=== PATIENT | female | born 1970 | race Caucasian/White ===

== ENCOUNTER 2016-05-27 18:12 | Emergency (ER) | payer BC ==
[~2016-05-27] VITALS: Ht 160 cm; Wt 100.0 kg
[~2016-05-27 18:12] MED LIST: ACET-1145 PO; CYCL-319 PO; HYDR-3498 PO; METO10TA92 PO; PANT20TA2 PO
[2016-05-27 18:17] VITALS: Ht 160 cm; Wt 100.0 kg
[2016-05-27] MEDS ORDERED: METHYLPREDNISOLONE 125 MG INJ IM ONE (19:00)
--- NOTE | 2016-05-27 19:01 | ERD ---
ER Documentation Chief Complaint Date/Time DATE: 05/27/16 TIME: 18:56 Chief Complaint allergic rxn rash on hands and throat speaking in complete sentences HPI The patient is a 46-year-old female brought by paramedics for an allergic reaction after eating [place] food today at approximately 4 PM. She states that 10 minutes after her meal she noticed itching to her entire body and feeling that her throat was thick with some difficulty swallowing. These same symptoms have occurred many times in the past. The patient states that she is allergic to shrimp, diclofenac, ibuprofen, Tylenol with Codeine, aspirin, and Percocet. She denies inability to swallow, drooling, chest pain, shortness of breath, dizziness, lightheadedness, headache, nausea, vomiting, or any other symptoms. ROS All systems reviewed and are negative except as per history of present illness. Medications Home Meds Active Scripts Prednisone* (Prednisone*) 20 Mg Tab, 40 MG PO DAILY for 4 Days, TAB Prov:MARCEL MARTINES, AGUILAR 05/27/16 Epinephrine (Epipen 2-Librado) 0.3 Mg/0.3 Ml Pen.injctr, 1 EA INJ ONCE Y for ALLERGIC REACTION, #1 EA Prov:MARCEL MARTINES NP 05/27/16 Diphenhydramine Hcl* (Benadryl*) 25 Mg Cap, 25 MG PO Q6, #30 CAP Prov:MARCEL MARTINES, SOLAR INSTALLATION TECHNICIAN 05/27/16 Famotidine* (Pepcid*) 20 Mg Tablet, 20 MG PO BID for 4 Days, TAB Prov:MARCEL MARTINES NP 05/27/16 Cyclobenzaprine Hcl* (Cyclobenzaprine Hcl*) 10 Mg Tablet, 10 MG PO TID, #15 TAB Prov:MELIZA OLIVEROS DO 10/15/15 Hydrocodone Bit-Acetaminophen* ([place]*) 5-325 Mg Tab, 1 TAB PO Q6 Y for PAIN, # 7 TAB Prov:MELIZA OLIVEROS DO 10/15/15 Reported Medications Acetaminophen-Codeine (Tylenol With Codeine #3 Tablet) 1 Tab Tablet, PO Q8 05/12/11 Pantoprazole* (Protonix*) 20 Mg Tablet.dr, 20 MG PO AM 11/15/10 Metoclopramide* (Reglan*) 10 Mg Tablet, 10 MG PO BID 11/15/10 [None] No Conflict Check 09/24/09 Allergies Allergies: Coded Allergies: ibuprofen (Verified Allergy, Mild, 09/29/11) propoxyphene (Verified Allergy, Mild, 09/29/11) Uncoded Allergies: SHRIMP (Allergy, Mild, 03/31/10) PMhx/Soc History of Surgery: Yes (D&C) Anesthesia Reaction: No Hx Neurological Disorder: No Hx Respiratory Disorders: No Hx Cardiac Disorders: No Hx Psychiatric Problems: No Hx Miscellaneous Medical Probl: No Hx Alcohol Use: No Hx Substance Use: No Hx Tobacco Use: No Physical Exam Vitals Vital Signs Date Time Temp Pulse Resp B/P Pulse Ox O2 Delivery O2 Flow Rate FiO2 05/27/16 23:02 101 18 96 Room Air 05/27/16 20:45 74 18 100 21 05/27/16 20:35 98.7 05/27/16 18:17 98.1 68 18 107/58 100 Physical Exam INITIAL VITAL SIGNS: Reviewed by me, oximetry 100% on room air, no hypotension, no tachycardia or bradycardia GENERAL: Alert. Well developed and well nourished. No respiratory distress. No acute distress. HEAD: Head is normocephalic. Atraumatic. EYES: EOMI. PERRL. No scleral icterus. No conjunctival injection. ENT: External ears, nose, and mouth normal. Nasal passages patent. Throat is clear and without erythema or exudates. Tonsils +1 without erythema or exudates. Airway patent. Moist mucous membranes. NECK: Supple. Full range of motion. Trachea midline. RESPIRATORY: No tachypnea. Clear to auscultation bilaterally. No wheezing, rales , or rhonchi. No stridor. No evidence of increased respiratory effort. CV: Regular rate and rhythm. No murmurs, rubs, or gallops ABDOMEN: Soft, non-distended, non-tender. No guarding. No rebound. No masses. Bowel sounds normal in all quadrants. BACK: No CVA tenderness. Full ROM. EXTREMITIES: No obvious deformity. No clubbing or cyanosis. No edema. SKIN: + Generalized redness to chest and abdomen. No raised lesions, plaques, pustules, or urticaria. Warm and dry. No diaphoresis. NEUROLOGIC: Alert and oriented x 3. Appropriate. Face is symmetric. Speech is normal. Moves all extremities equally. Results 24 hrs Current Medications Medications (Trade) Dose Ordered Sig/Peter Route PRN Reason Start Time Stop Time Status Last Admin Dose Admin Methylprednisolone Sodium Succinate 125 mg 125 mg ONCE ONCE IM 05/27/16 19:00 05/27/16 19:01 DC 05/27/16 19:04 Sodium Chloride (NS) 1,000 ml @ 1,000 mls/hr Q1H ONCE IV 05/27/16 20:30 05/27/16 21:29 DC 05/27/16 20:33 Diphenhydramine HCl (Benadryl) 50 mg ONCE ONCE IV 05/27/16 20:30 05/27/16 20:31 DC 05/27/16 20:30 Famotidine (Pepcid Iv) 20 mg ONCE ONCE IV 05/27/16 20:30 05/27/16 20:31 DC 05/27/16 20:30 Albuterol (Proventil 0.5% (Neb)) 5 mg ONCE STAT NEB 05/27/16 20:09 05/27/16 20:11 DC 05/27/16 20:41 Procedures/MDM Nursing Notes Reviewed Previous Medical Records requested via [employer]. EMERGENCY DEPARTMENT COURSE / MEDICAL DECISION MAKING: The patient comes to the ED secondary to generalized itching, and a sensation of throat taking approximately 10 minutes after eating [place] food around 4 PM today. Differential diagnosis upon initial evaluation includes but is not limited to: Allergic reaction, airway emergency The paramedics bring a 12-lead strip which shows normal sinus rhythm at 92 bpm. This strip was shown to and discussed with Dr. Hogue. The patient was treated with Solu-Medrol 125 mg IM. Benadryl was not given in the emergency department, as 50 mg IV were given by paramedics approximately 30 minutes ago. On reassessment, the patient states that she is not feeling much better. In fact, she now has urticaria on her torso which is quite itchy. Her lung exam was normal. Her throat exam was normal. Oximetry is 100% on room air. The case was discussed with supervising physician Dr. Hogue. It was decided to give Benadryl 50 mg IV, Pepcid 20 mg IV, and a breathing treatment with albuterol 5 mL. on reassessment the patient states she is feeling much better. She denies itching and states that her rash has resolved. She denies any throat thickening or difficulty breathing. She states that she feels comfortable to be discharged home at this time. The patient was seen and assessed at the bed side by Dr. Gurrola prior to discharge. He agrees that the patient is an appropriate candidate for outpatient management and follow-up at this time. Final impression: Allergic reaction The patient does not have any signs of respiratory distress, her throat is clear and without any erythema or edema, airway patent, lips and tongue normal without any edema, no chest pain, no difficulty breathing, oximetry 100% on room air, no tachycardia or bradycardia, normal blood pressure, afebrile. There is no evidence of airway compromise. Based on patient's history of present illness and physical examination the decision was made to discharge. The patient was re-evaluated after ED treatment and stabilizing measures, and symptoms have improved. There is no evidence of life threatening injuries or illnesses at this time. On re-examination, patient resting in no distress, stable vital signs, reports feeling better and safe for discharge with outpatient follow up with PMD in 1-2 days so that she may be referred to an airborne electronics analyst promptly. Patient given return precautions. He verbalized understanding and agreed to return precautions. She agrees with the plan of care. Prescriptions Pepcid Prednisone Benadryl EpiPen Departure Diagnosis: Primary Impression: Allergic reaction Encounter type: initial encounter Qualified Code: T78.40XA - Allergic reaction, initial encounter Condition: Stable MARCEL MARTINES NP May 27, 2016 19:01
[2016-05-27] MEDS ORDERED: ALBUTEROL 0.5% (NEB) 2.5 MG/0.5 ML AMP NEB STA (20:09)
[2016-05-27] MEDS ORDERED: SOD CHLORIDE 0.9% 1,000 ML IV ONE (20:30)
[2016-05-27] MEDS ORDERED: DIPHENHYDRAMINE 50 MG INJ IV ONE (20:30)
[2016-05-27] MEDS ORDERED: FAMOTIDINE 20 MG INJ IV ONE (20:30)
[2016-05-27 20:35] VITALS: TEMP 98.7
[2016-05-27] MEDS ORDERED: FAMO-18 PO (22:44)
[2016-05-27] MEDS ORDERED: BEN25 PO (22:45)
[2016-05-27] MEDS ORDERED: EPIN0.3P4 INJ (22:45)
[2016-05-27] MEDS ORDERED: PRED20TA PO (22:45)
[2016-05-27 23:02] VITALS: PULSE 101; RESP 18
== END 2016-05-27 23:25 | disposition home or self-care (01) ==
LOC: FTE 18:12
DX: L29.9 Pruritus, unspecified (principal); R21 Rash and other nonspecific skin eruption
CPT/HCPCS: 94664; 96372; 96374; 96375; 99284; J1200; J2930; J7030